=== PATIENT | female | born 1985 | race Caucasian/White ===

== ENCOUNTER 2016-10-30 10:24 | Inpatient (IN) | payer OTHER ==
[~2016-10-30 10:24] MED LIST: BETAMET ACET/BETAMET NA PH 6 MG/1 ML - 5 ML ONE; Sodium Chloride 0.9% 2,000 ML ONE
[2016-10-30] MEDS ORDERED: NORMAL SALINE 10 ML SYRINGE FLUSH IVP PRN (10:30)
[2016-10-30] MEDS ORDERED: NIFEdipine 10 MG CAPSULE PO ONE (10:30)
[2016-10-30] MEDS ORDERED: Sodium Chloride 0.9% 1,000 ML PRIMARY IV SCH (10:30)
[2016-10-30] MEDS ORDERED: BETAMET ACET/BETAMET NA PH 6 MG/1 ML - 5 ML IM SCH (10:30)
[2016-10-30] MEDS ORDERED: Sodium Chloride 0.9% 1,000 ML PRIMARY IV ONE (10:30)
[2016-10-30 10:47] LABS: BILIRUBIN,URINE NEGATIVE (NEG); COLOR,URINE YELLOW; GLUCOSE, URINE (UA) NEGATIVE (NEG); NITRATE,URINE NEGATIVE (NEG); OCCULT BLOOD,URINE MODERATE (NEG); PH,URINE 6.5 (5.0-8.5); PROTEIN,URINE NEGATIVE (NEG); UROBILINOGEN,URINE 0.2 EU/dL (0.2)
[2016-10-30 10:59] LABS: CLARITY,URINE CLEAR (CLEAR)
[2016-10-30 11:00] LABS: RBC,URINE 0 /hpf; SQUAMOUS EPITHELIAL CELL,UR RARE; URINE SAMPLE TYPE CLEAN CATCH URINE; WBC,URINE 0
--- NOTE | 2016-10-30 11:33 | DI ---
LIMITED OBSTETRICAL ULTRASOUND FOR CERVICAL LENGTH MEASUREMENT, 10/30/2016 10:32 AM: Clinical History: contractions. Contractions at 27 weeks. The patient has a cerclage for lisandro tment of an incompetent cervix. Previous Exam: None. LMP: 04/22/2016. Multiple transvaginal scans through the mid sagittal plane of the cervix are obtained. The shortest c ervical length measurement is 23 mm. The cerclage band is visualized. The fetus is in vertex presenta tion. Reading: The cervical length measurement is 23 mm.
[2016-10-30 11:51] LABS: BASOPHILS # (AUTO) 0.02 10*3/UL; BASOPHILS % (AUTO) 0.2 % (0-1); EOSINOPHILS # (AUTO) 0.07 10*3/UL; EOSINOPHILS % (AUTO) 0.6 % (0-8); HEMATOCRIT 36.9 % (37.0-47.0); LYMPHOCYTES # (AUTO) 2.01 10*3/uL; MEAN CORPUSCULAR HEMOGLOBIN 29.1 PG (27-31); MEAN CORPUSCULAR HGB CONC 32.5 g/dL (33-37); MEAN CORPUSCULAR VOLUME 89.3 FL (81-99); MEAN PLATELET VOLUME 11.2 FL (7.4-12.2); MONOCYTES # (AUTO) 0.61 10*3/UL (0.3-0.8); MONOCYTES % (AUTO) 5.5 % (5-15); NEUTROPHILS % (AUTO) 75.4 % (50-80); RED BLOOD COUNT 4.13 10^6/uL (4.20-5.40)
[2016-10-30 11:52] VITALS: RESP 16; TEMP 98
[2016-10-30 11:53] LABS: BLOOD UREA NITROGEN 7 mg/dL (7-22); EST GLOMERULAR FILTRATION > 60 (>60 ml/min/1.73m(2)); SERUM ALBUMIN 3.5 g/dL (3.5-4.8)
[2016-10-30 12:01] LABS: PLATELET MORPHOLOGY COMMENT NORMAL MORPHOLOGY (NORM); WBC MORPHOLOGY COMMENT NORMAL MORPHOLOGY (NORM)
[2016-10-30 12:02] LABS: RBC MORPHOLOGY COMMENT NORMAL MORPHOLOGY (NORM)
[2016-10-30 12:21] LABS: URINE SAMPLE TYPE CLEAN CATCH URINE; URINE SPECIFIC GRAVITY - MAN 1.005
[2016-10-30 12:22] LABS: AMPHETAMINE SCREEN NEGATIVE (NEG); CANNABINOID SCREEN,URINE NEGATIVE (NEG); COCAINE SCREEN NEGATIVE (NEG); HIV ANTIBODY NEGATIVE (N); HIV-1 P24 ANTIGEN NEGATIVE (N); METHADONE URINE SCREEN NEGATIVE (NEG); METHAMPHETAMINES SCREEN,URINE NEGATIVE (NEG); OPIATE SCREEN,URINE NEGATIVE (NEG); TRICYCLIC ANTIDEPRESSANT,URINE NEGATIVE (NEG)
== END 2016-10-30 13:30 | disposition short-term general hospital (02) | DRG 778 ==
LOC: OBOP 10:24 → OBIP 11:05
PROVIDERS: ADMIT Obstetrics & Gynecology; ATTEND Obstetrics & Gynecology
DX: O60.02 Preterm labor without delivery, second trimester (principal); O34.32 Maternal care for cervical incompetence, second trimester; Z3A.27 27 weeks gestation of pregnancy
CPT/HCPCS: 76817; 80053; 80081; 80305; 81001; 81003; 82542; 86706; 86762; 86780; 86900; 86901; 87088; J0702; J7030